=== PATIENT | female | born 1990 | race American Indian/Alaskan Native ===

== ENCOUNTER 2022-01-03 08:08 | Emergency (ER) | payer SELFPAY ==
[~2022-01-03] VITALS: Ht 157.5 cm; Wt 74.5 kg
[2022-01-03 11:25] VITALS: BP 130/71
[2022-01-03] MEDS ORDERED: KETOROLAC TROMETH 30 MG/ML 1ML VIAL IM ONE (11:45)
[2022-01-03] MEDS ORDERED: cefTRIAXone SOD 1,000 MG VL IM ONE (11:45)
[2022-01-03] MEDS ORDERED: LIDOCAINE 1% HCL (LOCAL ANESTH.) INJ 20ML MDV ONE (11:54)
[2022-01-03] MEDS ORDERED: IBUP800T26 PO (11:55)
[2022-01-03] MEDS ORDERED: AMOX-277 PO (11:55)
== END 2022-01-03 12:29 | disposition home or self-care (01) ==
LOC: ER 08:08
DX: K02.9 Dental caries, unspecified (principal)
CPT/HCPCS: 96372; 99284; J0696; J1885; J2001